=== PATIENT | female | born 1930 | race Caucasian/White ===

== ENCOUNTER 2017-11-09 15:08 | Emergency (ER) | payer MEDICARE ==
[~2017-11-09] VITALS: Ht 149.9 cm; Wt 88.9 kg
[~2017-11-09 15:08] MED LIST: ASPI325T8 PO; CRESTOR20 MG PO; FAMO20TA5 PO; HYDR12.53 PO; LEVO112T4 PO; LOSA50TA6 PO; NEBI5TAB2 PO; SPIR25TA5 PO
--- NOTE | 2017-11-09 15:33 | PHYS DOC ---
Past History Past Medical History: Other Past Surgical History: Other Alcohol Use: None Drug Use: None Adult General HPI HPI 87-year-old female presents with chest tightness and shortness of breath that started this morning after she woke up. She is continued to have this tightness throughout the day. The patient has been active driving to a couple of appointments. She denies any increase in pain with exertion such as walking across the parking lot. She denies any diaphoresis. She has not had a significant cough lately. She denies fever. She has a history of hyperlipidemia , diabetes, and hypertension but no history of CA. She has been taking her medications as prescribed. She has no other complaints. Review of Systems Review of Systems Constitutional: Denies fever or chills [] Eyes: Denies change in visual acuity, redness, or eye pain [] HENT: Denies nasal congestion or sore throat [] Respiratory: Denies cough or shortness of breath [] Cardiovascular: No additional information not addressed in HPI [] GI: Denies abdominal pain, nausea, vomiting, bloody stools or diarrhea [] : Denies dysuria or hematuria [] Musculoskeletal: Denies back pain or joint pain [] Integument: Denies rash or skin lesions [] Neurologic: Denies headache, focal weakness or sensory changes [] Endocrine: Denies polyuria or polydipsia [] All other systems were reviewed and found to be within normal limits, except as documented in this note. Allergies Allergies Allergies Coded Allergies Type Severity Reaction Last Updated Verified oxaprozin Allergy Severe Anaphylaxis 03/06/15 Yes NSAIDS (Non-Steroidal Anti-Inflamma Allergy Unknown 03/05/15 No Sulfa (Sulfonamide Antibiotics) Allergy Unknown hives 03/05/15 No Physical Exam Physical Exam Constitutional: Well developed, well nourished, no acute distress, non-toxic appearance. [] HENT: Normocephalic, atraumatic, bilateral external ears normal, oropharynx moist, no oral exudates, nose normal. [] Eyes: PERRLA, EOMI, conjunctiva normal, no discharge. [] Neck: Normal range of motion, no tenderness, supple, no stridor. [] Cardiovascular:Heart rate regular rhythm, no murmur [] Lungs & Thorax: Bilateral breath sounds clear to auscultation [] Abdomen: Bowel sounds normal, soft, no tenderness, no masses, no pulsatile masses. [] Skin: Warm, dry, no erythema, no rash. [] Back: No tenderness, no CVA tenderness. [] Extremities: No tenderness, no cyanosis, no clubbing, ROM intact, no edema. [] Neurologic: Alert and oriented X 3, normal motor function, normal sensory function, no focal deficits noted. [] Psychologic: Affect normal, judgement normal, mood normal. [] EKG EKG Sinus bradycardia, rate 55, normal axis, no ST elevations or depressions.[] Radiology/Procedures Radiology/Procedures [] Impressions: Chest radiograph 11/09/2017 3:21 PM INDICATION: Chest pain shortness of breath COMPARISON: Chest radiograph March 05, 2015 TECHNIQUE: Portable upright frontal view of the chest is provided. FINDINGS: The cardiomediastinal silhouette is within normal limits. Minor atherosclerotic changes are identified involving the thoracic aorta. There are no pleural effusions. There is no pulmonary vascular congestion. There is no pneumothorax. The lungs are clear. Mild degenerative changes of the acromioclavicular joints are noted. IMPRESSION: No acute cardiopulmonary process. Electronically signed by: Kathleen Cisneros MD (11/09/2017 3:49 PM) [id number] DICTATED AND SIGNED BY: KATHLEEN CISNEROS MD DATE: 11/09/17 1548 Course & Med Decision Making Course & Med Decision Making Pertinent Labs and Imaging studies reviewed. (See chart for details) The patient's EKG is unremarkable. Her labs are remarkable for hyponatremia as well as an elevated creatinine. Review of her chart shows her creatinine has been 1.7 . The last 2 years. I will give her 500ml bolus of normal saline. Her troponin is negative. Her urine is unremarkable. The patient has had unusual blood pressures of 200 over the 70s. I will give her 0.1 clonidine here. The patient's blood pressure improved to 170/80. This is still high for the patient. She states that she didn't take her blood pressure medicine this morning. Her chest discomfort has improved. Since the patient had chest pain for more than 6 hours prior to her first troponin, her negative troponin is reassuring. I believe that she is safe to be discharged home. I recommended that she recheck her blood pressure in the morning and consider discussing a stress test with her PCP and/or boarder machine as an outpatient. After symptoms return or any new concerning symptoms develop, she will return to emergency room. [] Dragon Disclaimer Dragon Disclaimer This electronic medical record was generated, in whole or in part, using a voice recognition dictation system. Departure Departure: Referrals: RUSSELL KEARNEY MD (PCP) SAM GOOD DO Nov 09, 2017 15:33
[2017-11-09 15:46] LABS: BASO % 0 % (0-3); EOS # 0.1 x10^3/uL (0.0-0.7); EOS % 2 % (0-3); HEMATOCRIT 37.2 % (36.0-47.0); HEMOGLOBIN 12.8 g/dL (12.0-15.5); LYMPH # 1.9 x10^3/uL (1.0-4.8); LYMPH % 31 % (24-48); MEAN CORPUSCULAR HEMOGLOBIN 31 pg (25-35); MEAN CORPUSCULAR HGB CONC 34 g/dL (31-37); MEAN CORPUSCULAR VOLUME 90 fL (79-100); MONO # 0.7 x10^3/uL (0.0-1.1); MONO % 11 % (0-9); NEUT # 3.4 x10^3uL (1.8-7.7); NEUT % 55 % (31-73); PLATELET COUNT 156 x10^3/uL (140-400); RED BLOOD COUNT 4.13 x10^6/uL (3.50-5.40); RED CELL DISTRIBUTION WIDTH 13.2 % (11.5-14.5); WHITE BLOOD COUNT 6.2 x10^3/uL (4.0-11.0)
--- NOTE | 2017-11-09 15:52 | RAD ---
Chest radiograph 11/09/2017 3:21 PM INDICATION: Chest pain shortness of breath COMPARISON: Chest radiograph March 05, 2015 TECHNIQUE: Portable upright frontal view of the chest is provided. FINDINGS: The cardiomediastinal silhouette is within normal limits. Minor atherosclerotic changes are identified involving the thoracic aorta. There are no pleural effusions. There is no pulmonary vascular congestion. There is no pneumothorax. The lungs are clear. Mild degenerative changes of the acromioclavicular joints are noted. IMPRESSION: No acute cardiopulmonary process. Electronically signed by: Rafia Cisneros MD (11/09/2017 3:49 PM) [facility]
[2017-11-09 16:01] LABS: ALBUMIN 3.3 g/dL (3.4-5.0); ALBUMIN/GLOBULIN RATIO 1.1 (1.0-1.7); CALCIUM 9.1 mg/dL (8.5-10.1); CREATININE 1.7 mg/dL (0.6-1.0); GFR 28.4; POTASSIUM 4.5 mmol/L (3.5-5.1); TOTAL BILIRUBIN 0.5 mg/dL (0.2-1.0); TOTAL PROTEIN 6.4 g/dL (6.4-8.2)
[2017-11-09] MEDS ORDERED: IV NORMAL SALINE 500ML 500 ML IV ONE (16:45)
[2017-11-09 17:05] LABS: BILIRUBIN,URINE NEG (NEG); CLARITY,URINE CLEAR; COLOR,URINE STRAW; GLUCOSE,URINE NEG (NEG)
[2017-11-09 17:06] LABS: NITRITE,URINE NEG (NEG); UROBILINOGEN,URINE 0.2 mg/dL (0.2 mg/dL)
[2017-11-09 17:13] LABS: BACTERIA,URINE 0 /HPF (0-FEW); SQUAMOUS EPITHELIAL CELL,UR FEW /LPF; WBC,URINE OCC /HPF (0-4)
--- NOTE | 2017-11-09 17:27 | EKG ---
[address] [address] Test Date: 2017-11-09 Test Time: 15:14:00 Pat Name: KARL PERAZA Department: Room: Gender: F Terrazzo Roller: : 1930 Requested By: SAM GOOD Order Number: [id number] Reading MD: Emmanuel Duenas MD Measurements Intervals Shields Rate: 55 P: -3 TN: 172 QRS: 23 QRSD: 76 T: 34 QT: 396 QTc: 381 Interpretive Statements SINUS RHYTHM Electronically Signed On 11-13-2017 9:29:18 CDT by Emmanuel Duenas MD
[2017-11-09] MEDS ORDERED: cloNIDine HCL 0.1 MG TABLET PO ONE (17:30)
[2017-11-09 17:31] VITALS: BP 174/80
== END 2017-11-09 18:25 | disposition home or self-care (01) ==
LOC: ER 15:08
DX: R07.89 Other chest pain (principal); R06.02 Shortness of breath; Z88.6 Allergy status to analgesic agent; Z88.2 Allergy status to sulfonamides; Z88.8 Allergy status to other drugs, medicaments and biological substances
CPT/HCPCS: 36415; 71045; 80053; 81001; 84484; 85025; 93005; 99285; J7040

== ENCOUNTER → 2018-10-03 | Outpatient (CLI) | payer MEDICARE, BC ==
[~2018-10-03] MED LIST changes: -HYDR12.53 PO; +HYDR12.572 PO; -LOSA50TA6 PO; +LOSA50TA86 PO
--- NOTE | 2018-10-03 17:17 | RAD ---
Right lower extremity venous Doppler dated 10/03/2018. No comparison available. CLINICAL INDICATION: Pain and swelling for one week. FINDINGS: Grayscale, color-flow and spectral waveform analysis performed to include the deep venous system of the right lower extremity. Normal compressibility, phasicity and augmentation of flow throughout. No filling defects are seen. IMPRESSION: No evidence of right lower extremity deep vein thrombosis. Electronically signed by: Montez Crowley MD (10/03/2018 5:15 PM) [facility]
== END | disposition home or self-care (01) ==
LOC: US 16:15
PROVIDERS: ATTEND Family Medicine
DX: M79.604 Pain in right leg (principal)
CPT/HCPCS: 93971

== ENCOUNTER → 2019-02-13 | Outpatient (CLI) | payer MEDICARE, BC ==
--- NOTE | 2019-02-13 11:44 | RAD ---
Examination: VENOUS LOWER EXTREMITY RIGHT History: Right lower extremity pain and swelling Comparison/Correlation: 03/05/2015 bilateral lower extremity venous duplex ultrasound exam FINDINGS: Right lower extremity duplex venous ultrasound exam was performed. Grayscale, color Doppler, and spectral Doppler imaging was performed. Compression and augmentation was performed. The right common femoral vein, superficial femoral vein, popliteal vein, and greater saphenous vein are normal with no evidence of deep venous thrombus. There is thrombus identified involving the anterior peroneal vein in the tibioperoneal trunk. IMPRESSION: Deep venous thrombus involves the right anterior peroneal vein and tibioperoneal trunk. On 02/13/2019 at 11:41 AM, results were reported to nurse Santos of Dr. Moran's office. Electronically signed by: Vinnie Gibbs MD (02/13/2019 11:41 AM) [facility]
== END | disposition home or self-care (01) ==
LOC: US 10:28
PROVIDERS: ATTEND Family Medicine
DX: I82.441 Acute embolism and thrombosis of right tibial vein (principal); I82.491 Acute embolism and thrombosis of other specified deep vein of right lower extremity; M79.604 Pain in right leg; M79.89 Other specified soft tissue disorders
CPT/HCPCS: 93971

== ENCOUNTER → 2019-02-19 | Outpatient (CLI) | payer MEDICARE, BC ==
--- NOTE | 2019-02-19 11:24 | RAD ---
RIGHT LEG VENOUS DOPPLER STUDY: Clinical indications: Right leg swelling and pain. Follow-up study COMPARISON: February 13, 2019. Findings: Duplex sonography (including alva scale evaluation and color flow and waveform spectral analysis) of the proximal aspect of the greater saphenous vein and proximal aspect of the profunda femoral vein and the entire length of the common femoral and superficial femoral and popliteal veins and the tibioperoneal trunk and the proximal aspect of the posterior tibial and peroneal veins of the right leg was performed. 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 Partial nonocclusive thrombosis is identified within one of the paired distal right superficial femoral veins and partial nonocclusive thrombosis is identified within the popliteal vein and one of the paired posterior tibial veins. The peroneal veins are not well visualized in today's study. Impression: Progression of DVT into the popliteal and superficial femoral veins. Electronically signed by: Pete Villalobos MD (02/19/2019 11:22 AM) [id number]
== END | disposition home or self-care (01) ==
LOC: US 09:28
PROVIDERS: ATTEND Family Medicine
DX: I82.431 Acute embolism and thrombosis of right popliteal vein (principal); I82.411 Acute embolism and thrombosis of right femoral vein
CPT/HCPCS: 93971

== ENCOUNTER → 2019-03-13 | Outpatient (CLI) | payer MEDICARE, BC ==
--- NOTE | 2019-03-13 16:20 | RAD ---
INDICATION: Follow-up of thrombus COMPARISON: February 19, 2019 TECHNIQUE: Grayscale, color and doppler ultrasound images were obtained of the right lower extremity venous vasculature. RIGHT: No thrombus identified in the common femoral vein, femoral vein, popliteal vein. Some limitation within the calf veins. IMPRESSION: * No definite deep vein thrombosis is seen. Electronically signed by: Quincy Bergeron MD (03/13/2019 4:17 PM) [facility]
== END | disposition home or self-care (01) ==
LOC: US 15:06
PROVIDERS: ATTEND Family Medicine
DX: M79.604 Pain in right leg (principal)
CPT/HCPCS: 93971

== ENCOUNTER → 2019-03-16 | Outpatient (CLI) | payer MEDICARE, BC ==
--- NOTE | 2019-03-16 12:15 | RAD ---
Right ankle x-rays 3 views. HISTORY: Right ankle pain. FINDINGS: Spur of the plantar calcaneus. No fracture or dislocation. No talus osteochondral lesion. Tiny calcification at the deltoid ligament perhaps due to an old ligamentous injury. There may be mild lower calf and ankle soft tissue edema. IMPRESSION: No acute osseous injury. Right foot x-rays 3 views HISTORY: Right foot pain. FINDINGS: Spur of the plantar calcaneus. No fracture or dislocation. Soft tissues unremarkable. IMPRESSION: No acute osseous injury. Electronically signed by: Brady López MD (03/16/2019 12:12 PM) [facility]
== END | disposition home or self-care (01) ==
LOC: RAD 10:58
PROVIDERS: ATTEND Family Medicine
DX: M24.271 Disorder of ligament, right ankle (principal)
CPT/HCPCS: 73610; 73630